=== PATIENT | male | born 1960 | race Two or more races ===

== ENCOUNTER 2020-04-28 13:08 | Inpatient (IN) | payer BC, OTHER ==
[~2020-04-28] VITALS: Ht 172.7 cm; Wt 65.0 kg
[2020-04-28 14:30] LABS: Urine Amorphous Crystal MANY /hpf (None Seen); Urine Bacteria FEW /hpf (None Seen); Urine Blood TRACE /uL (Negative); Urine Mucus FEW (None Seen); Urine Specific Gravity 1.034 (1.001-1.035); Urine WBC 39 /hpf (0 - 3); Urine WBC Clumps PRESENT /hpf (None Seen)
[2020-04-28 14:33] LABS: Basophils # (auto) 0 10 ^3/uL (0-0.2); Basophils % (auto) 0.2 % (0.0-2.0); Eosinophils # (auto) 0 10 ^3/uL (0-0.8); Hematocrit 43.3 % (41.0-53.0); Hemoglobin 14.4 g/dL (13.5-17.5); Lymphocytes # (auto) 0.6 10 ^3/uL (0.4-5.4); Lymphocytes % (auto) 5.2 % (10.0-50.0); Mean Corpuscular Hemoglobin 30.5 pg (28.0-32.0); Mean Corpuscular Hgb Conc. 33.3 g/dL (32.0-36.0); Mean Corpuscular Volume 91.7 fL (80.0-100.0); Monocytes # (auto) 0.3 10 ^3/uL (0-1.3); Monocytes % (auto) 2.7 % (0.0-12.0); Neutrophils # (auto) 11.1 10 ^3/uL (1.6-8.6); Neutrophils % (auto) 91.9 % (37.0-80.0); Platelet Count (auto) 245 10^3/uL (140-450); Red Blood Cells 4.72 10^6/uL (4.5-5.90); Red Cell Distribution Width 14.3 % (11.8-14.3); White Blood Cell 12.1 10^3/uL (4.4-10.8)
[2020-04-28 14:49] LABS: Anion Gap 5 (5-15); Blood Urea Nitrogen 17 mg/dL (7-18); Calcium 9.1 mg/dL (8.5-10.1); Carbon Dioxide 28 mmol/L (21-32); Chloride 107 mmol/L (98-107); Glucose 115 mg/dL (74-106); Potassium 3.9 mmol/L (3.5-5.1); Sodium 140 mmol/L (136-145)
[2020-04-28 14:55] LABS: Alanine Aminotransferase 40 U/L (16-61); Albumin 4.2 g/dL (3.4-5.0); Alkaline Phosphatase 124 U/L (45-117); Aspartate Aminotransferase 29 U/L (15-37); BUN/Creatinine Ratio 12.8; Bilirubin, Total 0.4 mg/dL (0.2-1.0); GFR African American 71 mL/min; GFR Non-African American 58 mL/min; Total Protein 8.6 g/dL (6.4-8.2)
[2020-04-28] MEDS ORDERED: cefTRIAXone 1GM/50ML D5W 50 ML IV ONE (17:30)
[2020-04-28] MEDS ORDERED: SODIUM CHLORIDE 0.9% 1,000 ML IV ONE ×2 (17:30)
[2020-04-28] MEDS ORDERED: KETOROLAC TROMETH 30 MG/ML 1ML VIAL IV ONE (17:30)
[2020-04-28] MEDS ORDERED: TAMSULOSIN HYDROCHLORIDE 0.4 MG CAP PO ONE (17:30)
[2020-04-28] MEDS ORDERED: LORazepam 0.5 MG TAB PO PRN (21:45)
[2020-04-28] MEDS ORDERED: DOCUSATE SOD 100 MG CAP PO PRN (21:45)
[2020-04-28] MEDS ORDERED: ONDANSETRON HCL 4 MG/2 ML VIAL IV PRN (21:45)
[2020-04-28] MEDS ORDERED: ACETAMINOPHEN 325 MG TAB PO PRN (21:45)
[2020-04-28] MEDS ORDERED: HYDROcodone-ACET 5/325MG TAB PO PRN (21:45)
[2020-04-28] MEDS ORDERED: MORPHINE SULF INJ 2 MG/ML SYRINGE 1ML IV PRN (21:45)
[2020-04-29] MEDS: FINASTERIDE 5 MG TAB PO SCH ×2 (08:20→10:00)
[2020-04-29] MEDS: TAMSULOSIN HYDROCHLORIDE 0.4 MG CAP PO SCH ×2 (08:20→10:00)
[2020-04-29] MEDS: SODIUM CHLORIDE 0.9% 1,000 ML IV SCH ×3 (08:21→18:49)
[2020-04-29] MEDS: cefTRIAXone 1GM/50ML D5W 50 ML IV SCH (10:00)
[2020-04-29 10:21] LABS: Basophils # (auto) 0 10 ^3/uL (0-0.2); Basophils % (auto) 0.4 % (0.0-2.0); Eosinophils # (auto) 0 10 ^3/uL (0-0.8); Eosinophils % (auto) 0.2 % (0.0-7.0); Hematocrit 41.5 % (41.0-53.0); Hemoglobin 13.6 g/dL (13.5-17.5); Lymphocytes # (auto) 1.2 10 ^3/uL (0.4-5.4); Lymphocytes % (auto) 16.2 % (10.0-50.0); Mean Corpuscular Hemoglobin 30.4 pg (28.0-32.0); Mean Corpuscular Hgb Conc. 32.9 g/dL (32.0-36.0); Mean Corpuscular Volume 92.5 fL (80.0-100.0); Monocytes # (auto) 0.8 10 ^3/uL (0-1.3); Neutrophils # (auto) 5.6 10 ^3/uL (1.6-8.6); Neutrophils % (auto) 73.2 % (37.0-80.0); Nucleated Red Blood Cells % 0.1 %; Platelet Count (auto) 207 10^3/uL (140-450); Red Blood Cells 4.49 10^6/uL (4.5-5.90); Red Cell Distribution Width 14.3 % (11.8-14.3); White Blood Cell 7.6 10^3/uL (4.4-10.8)
[2020-04-29 10:31] LABS: Calcium 9.1 mg/dL (8.5-10.1); Potassium 3.6 mmol/L (3.5-5.1)
[2020-04-29 10:34] LABS: BUN/Creatinine Ratio 15.4
--- NOTE | 2020-04-29 18:18 | NUR ---
[facility] admit from [facility] admitted to [facility]. Found patient in room. No report received. Patient oriented to RODGER SANCHEZ RN primary RN, unit, room, bed, and unit policies regarding patient care and visiting hours. Patient weighed by bedscale and encouraged to call if they need something. All questions and concerns addressed, patient verbalized understanding.
[2020-04-29 18:30] VITALS: BP 121/53
--- NOTE | 2020-04-29 19:20 | NUR ---
Opening Shift Note Assumed care of patient, awake and alert. No S/S of distress/SOB or pain. patient ambulated without any difficulty steady gait. Instructed on POC and to call for assist PRN, will continue to monitor for changes Q1hr and PRN. bed in low position and call light within reach.
--- NOTE | 2020-04-29 19:24 | NUR ---
Closing Shift Note Patient resting in bed. No distress noted. Report given.
[2020-04-29 22:00] VITALS: BP 112/49
--- NOTE | 2020-04-29 23:33 | NUR ---
patient reports pain 6/10 to right flank. patient medicated per md order.
--- NOTE | 2020-04-30 00:33 | NUR ---
pain reassessment patient sleeping no signs of sob distress or pain. bilateral chest rise and fall.
[2020-04-30] MEDS: SODIUM CHLORIDE 0.9% 1,000 ML IV SCH (04:30)
[2020-04-30 05:00] VITALS: BP 116/53
--- NOTE | 2020-04-30 07:15 | NUR ---
report given to dayshift rn patient is awake and alert denies sob distress or pain
--- NOTE | 2020-04-30 07:15 | NUR ---
Opening Shift Note Assumed care of patient, awake and alert. No S/S of distress/SOB or pain. Instructed on POC and to call for assist PRN, will continue to monitor for changes Q1hr and PRN. bed in low position and call light within reach.
[2020-04-30 09:00] VITALS: BP 117/67
[2020-04-30] MEDS: TAMSULOSIN HYDROCHLORIDE 0.4 MG CAP PO SCH (10:18)
[2020-04-30] MEDS: FINASTERIDE 5 MG TAB PO SCH (10:18)
[2020-04-30] MEDS: cefTRIAXone 1GM/50ML D5W 50 ML IV SCH (10:18)
[2020-04-30] MEDS ORDERED: MANNITOL FTV 25% 12.5 GM/50 ML 50 ML IV ONE (11:45)
[2020-04-30 13:00] VITALS: BP 140/56
[2020-04-30 17:00] VITALS: BP 115/62
[2020-04-30 22:24] VITALS: BP 106/57
[2020-05-01 05:00] VITALS: BP 106/62
--- NOTE | 2020-05-01 07:13 | NUR ---
ASSUMED CARE OF PATIENT AT 1900.OF 04/30/20. HE DENIED PAIN OR DISCOMFORT. PATIENT VOIDED ABOUT 3 TIMES, SIEVED URINE YIELDED NO STONES. HE SLEPT WELL AND IS AWAITING DISCHARGE TODAY..
[2020-05-01 09:00] VITALS: BP 118/56
--- NOTE | 2020-05-01 10:30 | NUR ---
Stone passed Patient noticed to have passed kidney stone. Will notify
[2020-05-01] MEDS: SODIUM CHLORIDE 0.9% 1,000 ML IV SCH ×2 (11:04→11:06)
[2020-05-01] MEDS: TAMSULOSIN HYDROCHLORIDE 0.4 MG CAP PO SCH (11:05)
[2020-05-01] MEDS: FINASTERIDE 5 MG TAB PO SCH (11:05)
[2020-05-01] MEDS: cefTRIAXone 1GM/50ML D5W 50 ML IV SCH (11:05)
[2020-05-01 13:00] VITALS: BP 103/59
[2020-05-01 15:47] VITALS: BP 118/56
--- NOTE | 2020-05-01 16:30 | NUR ---
Discharge instructions given as ordered. Encourage to follow up with PMD as instructed. All questions and concerns addressed. Patient verbalized understanding. IV removed with catheter intact, pressure dressing applied. Patient taken to vehicle via wheelchair with all personal belongings, accompanied by staff. No distress noted at time of departure.
[2020-05-01 16:56] VITALS: BP 110/60
== END 2020-05-01 16:30 | disposition home or self-care (01) | DRG 690 ==
LOC: ER 13:08 → OVERFLOW 13:09 → WEST WING 04-29 18:18
PROVIDERS: ADMIT Hospitalist; ATTEND Family Medicine
DX: N13.6 Pyonephrosis (principal); E86.0 Dehydration; Z87.442 Personal history of urinary calculi
CPT/HCPCS: 36415; 74176; 80048; 80053; 81001; 83605; 84484; 85025; 87040; 87086; G0378; J0696